=== PATIENT | male | born 1980 | race Caucasian/White ===

== ENCOUNTER 2021-07-08 11:38 | Emergency (ER) | payer OTHER, BC ==
[2021-07-08 11:46] VITALS: BP 146/85; PULSE 72; RESP 18; TEMP 97.9
--- NOTE | 2021-07-08 12:37 | ED ---
Upper Extremity HPI - General Chief Complaint: Extremity Injury, Upper Stated Complaint: Rt Hand Dislocation Time Seen by Provider: 07/08/21 12:07 Source: patient, RN notes reviewed Mode of arrival: ambulatory Limitations: no limitations - History of Present Illness Initial Comments: 41-year-old male presents emergency Department chief complaint of right hand pain. Patient states he had injury 2 weeks ago in which she fell into the chair states that he grabbed the back of a chair into the wall. Patient complains of mid hand pain states he was deformed but seems to be slightly better after crusted down. Patient's he still has pain for last 2 weeks follow-up with [facility] today who performed x-rays stating that he had a fracture. He is right-hand dominant no paresthesias patient offers no complaints. - Related Data Allergies Allergy/AdvReac Type Severity Reaction Status Date / Time No Known Allergies Allergy Verified 07/08/21 11:46 Review of Systems ROS Statement: Those systems with pertinent positive or pertinent negative responses have been documented in the HPI. ROS Other: All systems not noted in ROS Statement are negative. Past Medical History Additional Past Medical History / Comment(s): diverticulitis, fibromyalgia. History of Any Multi-Drug Resistant Organisms: None Reported Past Surgical History: No Surgical Hx Reported Past Psychological History: No Psychological Hx Reported Smoking Status: Never smoker Past Alcohol Use History: None Reported Past Drug Use History: None Reported General Exam Limitations: no limitations General appearance: alert, in no apparent distress Head exam: Present: atraumatic, normocephalic, normal inspection Respiratory exam: Present: normal lung sounds bilaterally. Absent: respiratory distress, wheezes, rales, rhonchi, stridor Cardiovascular Exam: Present: regular rate, normal rhythm, normal heart sounds. Absent: systolic murmur, diastolic murmur, rubs, gallop, clicks Extremities exam: Present: other (Right hand there is tenderness over the third metacarpal region, no obvious deformity neurovascular intact.) Course Vital Signs 07/08/21 11:42 Temperature 97.9 F Pulse Rate 72 Respiratory 18 Rate Blood Pressure 146/85 O2 Sat by Pulse 97 Oximetry Procedures - Orthopedic Splinting/Casting Injury #1 Side: right Upper Extremity Injury Location: short arm, hand Upper Extremity Immobilizer: volar splint, synthetic pre-padded splint Medical Decision Making - Medical Decision Making Patient was splinted and will follow-up with orthopedics. I did not have access to the x-rays I recommended have repeat x-rays patient refused stating that he had x-rays earlier today I did contact [facility] and talk to the physician transportation assistant to examine the patient stating that there was a mildly displaced third metacarpal fracture Disposition Clinical Impression: Fracture of third metacarpal bone of right hand Disposition: HOME SELF-CARE Condition: Stable Instructions (If sedation given, give patient instructions): Hand Fracture (ED) Additional Instructions: Please return to the Emergency Department if symptoms worsen or any other concerns. Is patient prescribed a controlled substance at d/c from ED?: No Referrals: [facility],Clinic [Primary Care Provider] - 1-2 days Anita Valles DO [Doctor of Osteopathic Medicine] - 1-2 days Time of Disposition: 12:36
== END 2021-07-08 13:20 | disposition home or self-care (01) ==
LOC: EC 11:38
DX: S62.392A Other fracture of third metacarpal bone, right hand, initial encounter for closed fracture (principal); W07.XXXA Fall from chair, initial encounter
CPT/HCPCS: 29125; 99283

== ENCOUNTER 2023-12-27 10:38 | Day surgery (SDC) | payer OTHER ==
[2023-12-26 09:27] VITALS: BMI 20.5
--- NOTE | 2023-12-27 08:57 | P.GSHP ---
History of Present Illness H&P Date: 12/27/23 CHIEF COMPLAINT: GERD and colon screen HISTORY OF PRESENT ILLNESS: The patient is a 43-year-old male who presents with gastroesophageal reflux disease and need for colon screen. Upper and lower endoscopy were offered for further evaluation and management. PAST MEDICAL HISTORY: Please see list. PAST SURGICAL HISTORY: Please see list. MEDICATIONS: Please see list. ALLERGIES: Please see list. SOCIAL HISTORY: No illicit drug use FAMILY HISTORY: No reports of Crohn disease or ulcerative colitis. REVIEW OF ORGAN SYSTEMS: CONSTITUTIONAL: No reports of fevers or chills. GI: Denies any blood in stools or constipation. PHYSICAL EXAM: VITAL SIGNS: Stable GENERAL: Well-developed pleasant in no acute distress. HEENT: No scleral icterus. Extraocular movements grossly intact. Moist buccal mucosa. NECK: Supple without lymphadenopathy. CHEST: Unlabored respirations. Equal bilateral excursions. CARDIOVASCULAR: Regular rate and rhythm. Distal 2+ pulses. ABDOMEN: Soft, nondistended. MUSCULOSKELETAL: No clubbing, cyanosis, or edema. ASSESSMENT: 1. Gastroesophageal reflux disease 2. Colon screen. PLAN: 1. 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 UNABLE TO TOLERATE FOOD OR PILLS. ABD. PAIN. severe histamine intolerance History of Any Multi-Drug Resistant Organisms: None Reported Past Surgical History: No Surgical Hx Reported Additional Past Surgical History / Comment(s): Tooth extraction. COLONOSCOPY Past Anesthesia/Blood Transfusion Reactions: No Reported Reaction Additional Past Anesthesia/Blood Transfusion Reaction / Comment(s): Pt has never received blood. Smoking Status: Former smoker - Past Family History Father Family Medical History: Hyperlipidemia Additional Family Medical History / Comment(s): Cervical injury Mother Family Medical History: Thyroid Disorder Medications and Allergies Home Medications Medication Instructions Recorded Confirmed Type No Known Home Medications 12/26/23 12/26/23 History Allergies Allergy/AdvReac Type Severity Reaction Status Date / Time No Known Allergies Allergy Verified 07/08/21 11:46
[~2023-12-27 10:38] MED LIST: LIDOCAINE 1% (10MG/ML) FOR IV START INTRADERMA PRN
[2023-12-27] MEDS: IV FLUID CONTINUATION 1,000 ML IV ONE (11:09)
[2023-12-27 11:25] VITALS: TEMP 97.3
[2023-12-27] MEDS: LACTATED RINGERS 1,000 ML IV SCH (11:26)
[2023-12-27] MEDS ORDERED: PROPOFOL 10 MG/ML 20 ML VIAL IV ONE (11:56)
[2023-12-27] MEDS ORDERED: MIDAZOLAM 2 MG/2 ML VIAL ONE (11:56)
[2023-12-27] MEDS ORDERED: LIDOCAINE 1% INJ 10MG/ML (20 ML MDV) ONE (11:56)
[2023-12-27] MEDS ORDERED: fentaNYL (PF) 50 MCG/ML 2 ML AMP ONE (11:56)
--- NOTE | 2023-12-27 13:09 | P.PCN ---
Date of Procedure: 12/27/23 Description of Procedure: PREOPERATIVE DIAGNOSIS: Gastroesophageal reflux disease. Epigastric abdominal pain POSTOPERATIVE DIAGNOSIS: Gastroesophageal reflux disease. Gastritis. OPERATION: Esophagogastroduodenoscopy with biopsies along esophagus, antrum and duodenum SURGEON: Rhonda Pond MD ANESTHESIA: MAC. INDICATIONS: The patient is a 43-year-old male who presents with epigastric abdominal pain and reflux disease. Benefits and risks of the procedure were described. Informed consent was obtained. DESCRIPTION: The patient was brought into the endoscopy suite and laid in the left lateral decubitus position. An Olympus gastroscope was passed along the posterior oropharynx down to the distal esophagus where the squamocolumnar junction was encountered at 40 cm from the incisors. The stomach was entered and no bile reflux was found. Additional findings are listed below. Biopsies with cold forceps were obtained of the antrum. The first through third portion of the duodenum was examined. Retroflexion of the scope confirmed Hill grade 1 lower esophageal valve. The squamocolumnar junction demonstrated LA grade A erosive esophagitis. The stomach was desufflated. The patient tolerated the procedure well. FINDINGS: Squamocolumnar junction 40 cm from the incisors. Diaphragmatic hiatus at 40 cm. Hill grade 2 lower esophageal valve. LA grade A erosive esophagitis. Biopsies obtained Biopsies obtained of the duodenum. Chronic gastritis with biopsies obtained. RECOMMENDATIONS: Upper endoscopy as needed.
--- NOTE | 2023-12-27 13:10 | P.PCN ---
Date of Procedure: 12/27/23 Description of Procedure: PREOPERATIVE DIAGNOSIS: Abnormal stool function Change in bowel habits POSTOPERATIVE DIAGNOSIS: Microscopic colitis OPERATION: Colonoscopy to the cecum, ileocecal valve and appendiceal orifice. Colonoscopy with random cold forceps biopsies for microscopic colitis SURGEON: Rhonda Pond MD. ANESTHESIA: MAC. INDICATIONS: The patient is a 43-year-old male who presents with altered stools including change in bowel habits. Benefits and risks were described and informed consent was obtained. DESCRIPTION OF PROCEDURE: The patient had undergone Suprep. The patient had been brought into the operating room and laid in the left lateral decubitus position. After adequate i ntravenous sedation, the rectum was examined with 2% lidocaine jelly. No external hemorrhoids were encountered. The rectal tone was within normal limits. No lesions were palpated in the rectal vault. An Olympus colonoscope was advanced until the cecum, ileocecal valve and appendiceal orifice were clearly viewed. The prep was excellent. No scattered diverticulosis was encountered. No colonic polyps were found. Cold forceps biopsies randomly were obtained for microscopic colitis. Retroflexion of the scope demonstrated grade 1 internal hemorrhoids without active bleeding or inflammation. The colon was desufflated. The patient had tolerated the procedure well. Withdrawal time was over 6 minutes. FINDINGS: Aronchick preparation quality scale 1 (1-5) Internal hemorrhoids, grade 1 No external prolapsed hemorrhoids. No arteriovenous malformations. No adenomatous polyps. Cold forceps biopsies obtained for microscopic colitis RECOMMENDATIONS: Lower endoscopy as needed Plan - Discharge Summary Discharge Rx Participant: No New Discharge Prescriptions: Continue No Known Home Medications Discharge Medication List No Known Home Medications 12/26/23 [History] Follow up Appointment(s)/Referral(s): Rhonda Pond MD [STAFF PHYSICIAN] - 01/16/24 4:00 pm Patient Instructions/Handouts: *Surgery [facility] - (Anesthesia) Discharge Instructions Outpatient Surgery Discharge Disposition: HOME SELF-CARE
[2023-12-27 13:32] VITALS: RESP 18
[2023-12-27 14:21] VITALS: BP 120/72; PULSE 68
== END 2023-12-27 14:00 | disposition home or self-care (01) ==
LOC: ORWHC2ENDO 10:38
PROVIDERS: ATTEND Surgery Plastic and Reconstructive Surgery
CPT/HCPCS: 43239; 45380; 88305

== ENCOUNTER → 2024-01-30 | Outpatient (CLI) | payer OTHER ==
[2024-01-30 15:37] LABS: ALT 23 U/L (10-49); AST 23 U/L (14-35); Albumin 4.3 g/dL (3.8-4.9); Albumin/Globulin Ratio 1.95 Ratio (1.60-3.17); Alkaline Phosphatase 72 U/L (41-126); BUN/Creat Ratio 27.33 Ratio (12.00-20.00); Blood Urea Nitrogen 24.6 mg/dL (9.0-27.0); C Reactive Protein <0.30 mg/dL (0.00-0.80); Calcium 9.3 mg/dL (8.7-10.3); Carbon Dioxide 27.8 mmol/L (21.6-31.8); Chloride 100 mmol/L (96-109); Globulin 2.2 g/dL (1.6-3.3); Glucose 99 mg/dL (70-110); Potassium 4.5 mmol/L (3.5-5.5); Sodium 136 mmol/L (135-145); Total Bilirubin 0.3 mg/dL (0.3-1.2); Total Protein 6.5 g/dL (6.2-8.2)
[2024-01-30 16:19] LABS: Basophils # (A) 0.04 X 10*3/uL (0.00-0.10); Basophils % (A) 0.8 %; Eosinophils # (A) 0.21 X 10*3/uL (0.04-0.35); Eosinophils % (A) 4.2 %; HCT 43.7 % (39.6-50.0); HGB 14.3 g/dL (13.0-17.0); Lymphocytes # (A) 1.46 X 10*3/uL (0.90-5.00); Lymphocytes % (A) 29.5 %; MCH 29.2 pg (27.0-32.0); MCHC 32.7 g/dL (32.0-37.0); MCV 89.2 FL (80.0-97.0); Mean Platelet Volume 8.6 FL (9.5-12.2); Monocytes # (A) 0.53 X 10*3/uL (0.20-1.00); Monocytes % (A) 10.7 %; NRBC Per 100 WBC 0 X 10*3/uL (0.00-0.01); Neutrophils # (A) 2.69 X 10*3/uL (1.80-7.70); Neutrophils % (A) 54.4 %; Platelet Count 171 X 10*3/uL (140-440); RDW 14.9 % (11.5-14.5); WBC 4.95 X 10*3/uL (4.50-10.00)
[2024-01-30 17:51] LABS: Erythrocyte Sedimentation Rate 5 mm/Hr (0-15)
== END | disposition home or self-care (01) ==
LOC: LABWHC1 09:30
PROVIDERS: ATTEND Surgery Plastic and Reconstructive Surgery
DX: K50.90 Crohn's disease, unspecified, without complications (principal)
CPT/HCPCS: 36415; 80053; 82607; 82746; 85025; 85652; 86140

== ENCOUNTER → 2024-02-04 | Outpatient (CLI) | payer OTHER ==
--- NOTE | 2024-02-04 09:20 | MR ---
EXAMINATION TYPE: MR cervical spine wo con DATE OF EXAM: 02/04/2024 9:02 AM COMPARISON: None. CLINICAL INDICATION: Male, 43 years old with history of M54.2 Cervicalgia, PAIN, TINGLING AND NUMBNES S X12 YEARS, HX OF VAGUS NERVE ISSUES TECHNIQUE: Multiplanar, multisequence images of the cervical spine were acquired without contrast. Findings: The craniovertebral junction relationships and prevertebral soft tissues are normal. The cervical vertebral segments are normal in height and alignment and there is no fracture or sublux ation. There is loss of normal cervical lordosis and there is mild cervical kyphosis. There is mild disc space narrowing and circumferential disc bulge of the C5-6 intervertebral disks in dicating mild degenerative disease. The remaining intervertebral discs are normal in height and signa l intensity without significant degeneration. There is no cervical disc herniation. The cervical cord is normal in size and signal intensity. There is no cervical stenosis. Secondary to mild facet hypertrophy and degeneration of the vertebral joints, there is a mild to mode rate neural foraminal stenosis at the C5-6 level on the right and severe neural foraminal stenosis at C5-6 on the left. The paraspinal soft tissues are unremarkable. IMPRESSION: 1. Loss of the normal cervical lordosis with mild cervical kyphosis. 2. Mild degenerative disease at C5-6 level. 3. No lumbar disc herniation or spinal stenosis. 4. Mild to moderate neuroforaminal stenosis at C5-6 on the right and severe neural foraminal stenosis at C5-6 on the left. 5. Normal cervical cord. [facility], , 02/04/2024 9:18 AM
== END | disposition home or self-care (01) ==
LOC: RADMRIMAIN 08:05
PROVIDERS: ATTEND Family Medicine
DX: M50.122 Cervical disc disorder at C5-C6 level with radiculopathy (principal); M99.71 Connective tissue and disc stenosis of intervertebral foramina of cervical region; M40.292 Other kyphosis, cervical region
CPT/HCPCS: 72141